=== PATIENT | female | born 1970 | race American Indian/Alaskan Native ===

== ENCOUNTER 2016-11-14 08:04 | Day surgery (SDC) | payer OTHER ==
[2016-11-14 08:51] VITALS: BMI 33.6
[2016-11-14] MEDS ORDERED: Lidocaine Hydrochloride 5 ML INJ ONE (09:10)
[2016-11-14] MEDS ORDERED: Midazolam 2 MG/2 ML VIAL ONE ×2 (09:10→10:42)
[2016-11-14] MEDS ORDERED: Propofol 10 mg/ml Inj (20 ML) ONE (09:10)
[2016-11-14] MEDS ORDERED: Lidocaine 1% Inj (20ml) ONE ×2 (10:17→11:00)
[2016-11-14] MEDS ORDERED: MethylPREDNISolone Depo 40 mg/ml Inj ONE (10:17)
[2016-11-14] MEDS ORDERED: Bupivacaine 0.5% Inj(30mL) ONE (10:18)
[2016-11-14] MEDS ORDERED: Iohexol 300 100 ML IJ ONE ×2 (10:18→11:02)
[2016-11-14] MEDS ORDERED: Bupivacaine HCl 0.25% PF (30 ml) Inj ONE (10:36)
[2016-11-14] MEDS ORDERED: Bupivacaine HCl 0.25% PF (10 ml) Inj ONE ×2 (10:41→10:47)
[2016-11-14] MEDS ORDERED: EPINEPHrine 1 mg/ml (1:1000) Inj ONE ×2 (10:43→11:28)
[2016-11-14] MEDS: Lactated Ringer's 1,000 ML IV ONE (11:00)
[2016-11-14] MEDS: Iohexol 300 100 ML IJ ONE (11:50)
[2016-11-14] MEDS: EPINEPHrine 1 mg/ml (1:1000) Inj IV ONE ×3 (11:52)
[2016-11-14] MEDS: Bupivacaine HCl 0.25% PF (10 ml) Inj IJ ONE ×2 (11:55)
[2016-11-14] MEDS: Lidocaine 1% Inj (20ml) IJ ONE ×2 (11:56)
[2016-11-14] MEDS ORDERED: HYDROmorphone 0.5 mg/0.5 ml ISec IVP PRN (12:50)
[2016-11-14] MEDS ORDERED: Lactated Ringer's 1,000 ML IV SCH (13:00)
[2016-11-14 13:43] VITALS: O2SAT 100
[2016-11-14 14:03] VITALS: BP 97/60; PULSE 86; RESP 20; TEMP 98
[2016-11-14] MEDS ORDERED: Lidocaine 5% Patch TD ONE (19:51)
--- NOTE | 2016-11-17 15:47 | RAD ---
PROCEDURE: Intraoperative fluoroscopy HISTORY: LEFT JOINT SACRAL COMPARISON: Not available TECHNIQUE: Intraoperative fluoroscopy was provided for sacral injection. Total time of fluoroscopy was 72.1 seconds. FINDINGS: Twelve fluoroscopic spot films are submitted. Films are on file for review. IMPRESSION: Fluoroscopy provided.
== END 2016-11-14 14:00 | disposition home or self-care (01) ==
LOC: H.OPSURG 08:04
PROVIDERS: ATTEND Anesthesiology
DX: M53.3 Sacrococcygeal disorders, not elsewhere classified (principal); M46.1 Sacroiliitis, not elsewhere classified; I10 Essential (primary) hypertension; K21.9 Gastro-esophageal reflux disease without esophagitis